=== PATIENT | female | born 1925 | race Caucasian/White ===

== ENCOUNTER 2017-04-25 19:55 | Emergency (ER) | payer MEDICARE, MEDICAID ==
[2017-04-25 21:18] LABS: EGFR Non-African American 52.2 (>60)
[2017-04-25 21:26] LABS: Urine Appearance Cloudy; Urine Blood Negative (Negative); Urine Color Amber; Urine Ketones Trace (Negative); Urine Protein 1+(30 mg/dL) (Negative); Urine Specific Gravity 1.019 (1.010-1.030); Urine Urobilinogen Negative (Negative)
[2017-04-25] MEDS ORDERED: Nitrofurantoin Macrocrystals* 100 MG CAP PO ONE (21:33)
--- NOTE | 2017-04-25 21:48 | RAD ---
Indication: Confusion. Single frontal view of the chest performed at 2055 hours was reviewed. No prior study is available. No mediastinal shift is noted. Heart is of normal size and configuration. Lung sinha appear hyperinflated with fine reticular markings consistent with chronic interstitial disease. IMPRESSION: HYPERINFLATED LUNG SINHA WITH LIKELY CHRONIC INTERSTITIAL DISEASE.
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
[2017-04-25 22:29] VITALS: BP 133/68
== END 2017-04-25 22:28 | disposition home or self-care (01) ==
LOC: ED 19:55
DX: N39.0 Urinary tract infection, site not specified (principal); R41.82 Altered mental status, unspecified; R45.851 Suicidal ideations; F03.90 Unspecified dementia, unspecified severity, without behavioral disturbance, psychotic disturbance, mood disturbance, and anxiety
CPT/HCPCS: 36415; 71045; 80053; 80329; 81003; 81015; 82550; 83605; 83735; 84443; 84484; 85610; 87086; 93005; 99283; A9270-GY; G0480